=== PATIENT | male | born 1970 | race Caucasian/White ===

== ENCOUNTER 2018-04-26 17:46 | Emergency (ER) | payer OTHER ==
[~2018-04-26] VITALS: Ht 175.3 cm; Wt 104.5 kg
[2018-04-26] MEDS ORDERED: IBUPROFEN 600 MG TAB PO ONE (20:45)
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
[2018-04-26 22:07] VITALS: BP 135/84
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
== END 2018-04-26 22:12 | disposition home or self-care (01) ==
LOC: M ED 17:46
DX: S09.90XA Unspecified injury of head, initial encounter (principal); S60.032A Contusion of left middle finger without damage to nail, initial encounter; S16.1XXA Strain of muscle, fascia and tendon at neck level, initial encounter; F07.81 Postconcussional syndrome; V79.9XXA Bus occupant (driver) (passenger) injured in unspecified traffic accident, initial encounter; Y92.9 Unspecified place or not applicable; Y93.9 Activity, unspecified; Y99.9 Unspecified external cause status

== ENCOUNTER → 2018-04-26 | Outpatient (CLI) | payer OTHER | LOC: M RAD 17:00 | PROVIDERS: ATTEND Surgery | DX: Z53.9 Procedure and treatment not carried out, unspecified reason (principal) ==

== ENCOUNTER → 2018-05-28 | Outpatient (CLI) | payer OTHER ==
--- NOTE | 2018-05-28 10:07 | REP ---
Middle finger left hand four views: Comparison is 04/26/2018. There are no other comparison studies. Mineralization and joint spaces are normal. There is no fracture or dislocation. There are no calcifications or foreign bodies. There is focal decreased density in the head of the middle phalange, unchanged from the comparison study. There is no associated soft tissue edema, fracture, calcification or foreign body. No associated lytic or destructive changes. I suspect this represents focal or localized osteoporosis. Bone cyst is also possible considered less likely as it is not visible on the lateral view. Impression: No fracture or dislocation. No foreign body or calcification. Focal rarefaction in the head of the middle phalange, likely focal osteoporosis. If there are symptoms related to this location consider a radionuclide bone scan. Electronically Signed by Redd Ya MD 05/28/2018 09:58 A
== END ==
LOC: M RAD 09:17
PROVIDERS: ATTEND Surgery
DX: M79.642 Pain in left hand (principal)